=== PATIENT | male | born 1990 | race Caucasian/White ===

== ENCOUNTER 2020-02-20 16:55 | Emergency (ER) | payer OTHER ==
[~2020-02-20] VITALS: Ht 170 cm; Wt 72.6 kg
[2020-02-20 19:53] VITALS: BP 114/69
== END 2020-02-20 19:54 | disposition home or self-care (01) ==
LOC: ER 16:55
DX: S81.811A Laceration without foreign body, right lower leg, initial encounter (principal); Z87.891 Personal history of nicotine dependence; W22.8XXA Striking against or struck by other objects, initial encounter; Y93.89 Activity, other specified; Y92.89 Other specified places as the place of occurrence of the external cause; Y99.8 Other external cause status

== ENCOUNTER 2020-03-07 19:25 | Emergency (ER) | payer OTHER ==
[~2020-03-07] VITALS: Ht 172.7 cm; Wt 81.7 kg
[2020-03-07 19:29] VITALS: BP 122/66
== END 2020-03-07 20:55 | disposition home or self-care (01) ==
LOC: EDBD 19:25 → ER 19:25
DX: S81.811D Laceration without foreign body, right lower leg, subsequent encounter (principal); Z87.891 Personal history of nicotine dependence; X58.XXXD Exposure to other specified factors, subsequent encounter